=== PATIENT | female | born 1995 | race Caucasian/White ===

== ENCOUNTER 2017-08-10 13:30 | Emergency (ER) | payer OTHER ==
[~2017-08-10] VITALS: Ht 162.6 cm; Wt 57.1 kg
[2017-08-10 13:37] VITALS: TEMP 36.7; Ht 162.6 cm; Wt 57.1 kg
[2017-08-10] MEDS ORDERED: SODIUM CHLORIDE 0.9% 1000ML 1,000 ML IV STA (13:45)
[2017-08-10 14:20] LABS: BASO % 0.1 %; BASO ABS # 0.02 K/uL (0-0.2); COMPLETE YES; EOS % 0.3 %; HEMATOCRIT 42.1 % (37-47); IG% 0.3 %; LYMPH % 12.5 %; LYMPH ABS # 1.91 K/uL (1.2-3.4); MEAN CELL VOLUME 83.4 fL (80-100); MEAN CORPUSCULAR HEMOGLOBIN 28.9 pg (25-34); MEAN CORPUSCULAR HGB CONC 34.7 g/dl (32-36); MEAN PLATELET VOLUME 10.2 fL (7.4-10.4); NEUT % 82.8 %; PLATELET COUNT 352 K/uL (130-400); RED BLOOD COUNT 5.05 M/uL (4.2-5.4); WHITE BLOOD COUNT 15.24 K/uL (4.8-10.8)
[2017-08-10 14:33] LABS: BUN/CREATININE RATIO 10.9 (10-20); CALCIUM 9.8 mg/dl (8.5-10.1); CREATININE 0.81 mg/dl (0.60-1.20); POTASSIUM 3.6 mmol/L (3.5-5.1)
[2017-08-10 14:52] LABS: URINE APPEARANCE TURBID (CLEAR); URINE BILIRUBIN NEG (NEG); URINE COLOR YELLOW; URINE EPITHELIAL CELL AUTO 20-30 /lpf (0-5); URINE NITRITE NEG (NEG); URINE SPECIFIC GRAVITY 1.013 (1.000-1.030); UROBILINOGEN NEG (NEG); ZZUR CULT IF INDIC CLEAN CATCH YES
[2017-08-10 15:10] LABS: MANUAL MICROSCOPIC REQUIRED? NO; REVIEW REQ? YES
--- NOTE | 2017-08-10 15:53 | EMERGENCY ROOM VISIT NOTE ---
History First contact with patient: 13:40 Chief Complaint: URINARY SYMPTOMS Stated Complaint: SYMPT OF UTI, SHARP PAIN IN UPPER RIGHT SIDE Nursing Triage Summary: triage note; pt reports "i have had a uti for like a week and i have been treating it at home but today i woke up and have a sharp pain in my right lower back." History of Present Illness The patient is a 21 year old female who presents to the Emergency Room with complaints of urinary symptoms and right back pain. The patient states that she was recently on antibiotics for a sore throat. She states that the resolution of the antibiotics, she fell up some vaginal discharge and burning and use an [id number] treatment for a yeast infection. She states that her symptoms seemed to improve after a few days and she stopped using the medication. The patient states that she woke up this morning with dysuria and has also had some pain in the lower abdomen and right flank. She rates her overall discomfort a 6/10. She states that she currently has her menstrual period. She denies any fevers or nausea/vomiting. She has not taken any medication at home for her symptoms. She denies any chance of STDs. Review of Systems A complete 10 point review of systems was reviewed with the patient with pertinent positives and negatives as per history of present illness. All else were negative. Social History Smoking Status: Never Smoker Current/Historical Medications Scheduled Fluconazole (Diflucan), 150 MG PO DAILY Sulfa/Trimethoprim (Bactrim Ds 800MG/160MG), 1 TAB PO BID Physical Exam Vital Signs Date Time Temp Pulse Resp B/P (MAP) Pulse Ox O2 Delivery O2 Flow Rate FiO2 08/10/17 17:20 72 18 99/65 98 Room Air 08/10/17 16:40 69 18 103/58 97 Room Air 08/10/17 13:37 36.7 89 18 121/68 99 Room Air Physical Exam VITALS: Vitals are noted on the nurse's note and reviewed by myself. Vital signs stable. GENERAL: This is a 21-year-old female, in no acute distress, nondiaphoretic, well-developed well-nourished. HEART: Regular rate and rhythm without murmurs gallops or rubs. LUNGS: Clear to auscultation bilaterally without wheezes, rales or rhonchi. ABDOMEN: Positive bowel sounds x 4. Soft, mild tenderness to palpation over the suprapubic region. Mild right CVA tenderness. No guarding or rebound tenderness. PELVIC: External genitalia unremarkable. There is a small amount of blood within the vaginal vault. No cervicitis. No cervical motion or adnexal tenderness. NEURO: Patient was alert and oriented to person place and time. Medical Decision & Procedures ER Provider Diagnostic Interpretation: (RENAL)RETROPERITON COMP HISTORY: 21 years-old Female right flank pain, urinary sxs acute right-sided flank pain COMPARISON: None available TECHNIQUE: Multiple real-time sonographic images of the kidneys and urinary bladder were obtained assessing grayscale appearance and color flow. FINDINGS: The right kidney measures 9.7 x 4.1 x 4.5 cm and is unremarkable without renal calculi, hydronephrosis or focal mass lesions. Cortical medullary differentiation is preserved. The left kidney measures 10.2 x 4.7 x 4.1 cm and is unremarkable without hydronephrosis, renal calculi or focal mass lesions. Cortical medullary differentiation is preserved. Bilateral ureteral jets are documented. Mild urinary bladder wall thickening, 0.3 cm. IMPRESSION: 1. Normal sonographic appearance of the bilateral kidneys without renal calculi or hydronephrosis. 2. Mild urinary bladder wall thickening. Correlate with urinalysis to exclude cystitis. Laboratory Results 08/10/17 14:04 Red Blood Count 5.05, Mean Corpuscular Volume 83.4, Mean Corpuscular Hemoglobin 28.9, Mean Corpuscular Hemoglobin Concent 34.7, Mean Platelet Volume 10.2, Neutrophils (%) (Auto) 82.8, Lymphocytes (%) (Auto) 12.5, Monocytes (%) (Auto) 4.0, Eosinophils (%) (Auto) 0.3, Basophils (%) (Auto) 0.1, Neutrophils # (Auto) 12.62, Lymphocytes # (Auto) 1.91, Monocytes # (Auto) 0.61, Eosinophils # (Auto) 0.04, Basophils # (Auto) 0.02 08/10/17 14:04 Test 08/10/17 13:57 08/10/17 14:04 08/10/17 16:50 Urine Color YELLOW Urine Appearance TURBID (CLEAR) Urine pH 6.0 (4.5-7.5) Urine Specific [place] 1.013 (1.000-1.030) Urine Protein 2+ (NEG) Urine Glucose (UA) NEG (NEG) Urine Ketones NEG (NEG) Urine Occult Blood 2+ (NEG) Urine Nitrite NEG (NEG) Urine Bilirubin NEG (NEG) Urine Urobilinogen NEG (NEG) Urine Leukocyte Esterase LARGE (NEG) Urine WBC (Auto) >30 /hpf (0-5) Urine RBC (Auto) >30 /hpf (0-4) Urine Hyaline Casts (Auto) 1-5 /lpf (0-5) Urine Epithelial Cells (Auto) 20-30 /lpf (0-5) Urine Bacteria (Auto) 2+ (NEG) Urine Yeast (Auto) (NONE PRSENT) Urine Test NEG (NEG) White Blood Count 15.24 K/uL (4.8-10.8) Red Blood Count 5.05 M/uL (4.2-5.4) Hemoglobin 14.6 g/dL (12.0-16.0) Hematocrit 42.1 % (37-47) Mean Corpuscular Volume 83.4 fL (80-100) Mean Corpuscular Hemoglobin 28.9 pg (25-34) Mean Corpuscular Hemoglobin Concent 34.7 g/dl (32-36) Platelet Count 352 K/uL (130-400) Mean Platelet Volume 10.2 fL (7.4-10.4) Neutrophils (%) (Auto) 82.8 % Lymphocytes (%) (Auto) 12.5 % Monocytes (%) (Auto) 4.0 % Eosinophils (%) (Auto) 0.3 % Basophils (%) (Auto) 0.1 % Neutrophils # (Auto) 12.62 K/uL (1.4-6.5) Lymphocytes # (Auto) 1.91 K/uL (1.2-3.4) Monocytes # (Auto) 0.61 K/uL (0.11-0.59) Eosinophils # (Auto) 0.04 K/uL (0-0.5) Basophils # (Auto) 0.02 K/uL (0-0.2) RDW Standard Deviation 40.5 fL (36.4-46.3) RDW Coefficient of Variation 13.5 % (11.5-14.5) Immature Granulocyte % (Auto) 0.3 % Immature Granulocyte # (Auto) 0.04 K/uL (0.00-0.02) Anion Gap 5.0 mmol/L (3-11) Est Creatinine Clear Calc Drug Dose 96.5 ml/min Estimated GFR () 122.0 Estimated GFR (Non- 105.3 BUN/Creatinine Ratio 10.9 (10-20) Calcium Level 9.8 mg/dl (8.5-10.1) Date/Time Source Procedure Growth Status 08/10/17 16:50 Vaginal Swab Trichomonas Preparation - Final Complete Medications Administered Medications (Trade) Dose Ordered Sig/Eric Route Start Time Stop Time Status Last Admin Dose Admin Sodium Chloride 1,000 ml @ 999 mls/hr Q1H1M STAT IV 08/10/17 13:45 08/10/17 14:45 DC 08/10/17 13:45 999 MLS/HR Trimethoprim/ Sulfamethoxazole (Septra Ds 800/ 160MG Tab) 1 tab NOW ONCE PO 08/10/17 17:15 08/10/17 17:16 DC 08/10/17 17:21 1 TAB Fluconazole (Diflucan Tab) 150 mg NOW ONCE PO 08/10/17 17:15 08/10/17 17:16 DC 08/10/17 17:22 150 MG ED Course The patient was evaluated as above. Labs were drawn and IV access was obtained. Patient was medicated with 1 L normal saline solution. Renal ultrasound was performed and read by radiology as above. Patient was reevaluated and pelvic exam was performed at this time. Findings were discussed with the patient. She was given initial doses of Diflucan and Bactrim. Discharge instructions were reviewed with the patient. The patient verbalized understanding of my assessment and treatment plan and was discharged home in good condition. Medical Decision Differential diagnosis includes urinary tract infection, pyelonephritis, kidney stone, vaginal candidiasis, PID, STD, among others. The patient is a 21-year-old female who presents today complaining of urinary symptoms, right flank pain and vaginal discharge. Labs revealed leukocytosis of 15,000. Patient is afebrile. Labs were otherwise unremarkable. Urinalysis was suggestive of infection and also showed the presence of yeast. Urine was negative. Pelvic exam was performed and cultures were obtained and are pending. Patient will be treated on Bactrim for urinary tract infection and was given Diflucan for vaginal candidiasis. She was advised to follow-up with [facility] were DANCE DIRECTOR as needed. Based on the patient's presentation and work up, I feel the patient is stable for outpatient treatment. The patient was educated to return to the emergency department for any worsening of their current condition or new/concerning symptoms. She will follow up with her PCP. Medication Reconcilliation Current Medication List: was personally reviewed by me Blood Pressure Screening Patient's blood pressure: Normal blood pressure Impression Primary Impression: Urinary tract infection Departure Information Dispostion Home / Self-Care Condition GOOD Prescriptions Fluconazole (DIFLUCAN) 150 Mg Tab 150 MG PO DAILY for 1 Day, #1 TAB Prov: Yuko Martines PA-C 08/10/17 Sulfa/Trimethoprim (Bactrim Ds 800MG/160MG) Tab 1 TAB PO BID for 10 Days, #20 TAB Prov: Yuko Martines PA-C 08/10/17 Referrals No Doctor, Assigned (PCP) Patient Instructions My [facility] Additional Instructions You have been treated in the Emergency Department for a Urinary Tract Infection (UTI). You have been prescribed Bactrim to be taken twice daily for 10 days. This is an antibiotic. All antibiotics have the potential to cause diarrhea. Stop this medication and contact a medical provider if you were to develop any significant adverse side effects including: wheezing, shortness of breath, passing out, vomiting, or a diffuse rash. Always take antibiotics as directed and COMPLETE the ENTIRE course regardless of the improvement of your symptoms. Take the second Diflucan in 3-4 days if you have persistent symptoms of a yeast infection. Drink plenty of water and stay well hydrated. As with any trip to the Emergency Department, you should follow-up with your Primary Care Provider from today's visit. Return to the emergency department if your symptoms persist despite treatment plan outlined above or if the following symptoms occur: increased fevers, chills , low back pain, nausea/vomiting, or blood in your urine. Problem Qualifiers Primary Impression: Urinary tract infection Urinary tract infection type: acute cystitis Hematuria presence: with hematuria Qualified Codes: N30.01 - Acute cystitis with hematuria
--- NOTE | 2017-08-10 16:48 | DIAGNOSTIC IMAGING REPORT ---
(RENAL)RETROPERITON COMP HISTORY: 21 years-old Female right flank pain, urinary sxs acute right-sided flank pain COMPARISON: None available TECHNIQUE: Multiple real-time sonographic images of the kidneys and urinary bladder were obtained assessing grayscale appearance and color flow. FINDINGS: The right kidney measures 9.7 x 4.1 x 4.5 cm and is unremarkable without renal calculi, hydronephrosis or focal mass lesions. Cortical medullary differentiation is preserved. The left kidney measures 10.2 x 4.7 x 4.1 cm and is unremarkable without hydronephrosis, renal calculi or focal mass lesions. Cortical medullary differentiation is preserved. Bilateral ureteral jets are documented. Mild urinary bladder wall thickening, 0.3 cm. IMPRESSION: 1. Normal sonographic appearance of the bilateral kidneys without renal calculi or hydronephrosis. 2. Mild urinary bladder wall thickening. Correlate with urinalysis to exclude cystitis. The above report was generated using voice recognition software. It may contain grammatical, syntax or spelling errors. Electronically signed by: Linus Hughes M.D. 08/10/2017 4:46 PM Dictated Date/Time: 08/10/2017 4:44 PM
[2017-08-10] MEDS ORDERED: FLUC150T PO (17:12)
[2017-08-10] MEDS ORDERED: SULF800T23 PO (17:12)
[2017-08-10] MEDS ORDERED: FLUCONAZOLE 50 MG TAB PO ONE (17:15)
[2017-08-10] MEDS ORDERED: SULFAMETHOXAZOLE/TRIMETHOPRIM DS 800/160MG TAB PO ONE (17:15)
[2017-08-10 17:20] VITALS: BP 99/65; PULSE 72; O2SAT 98
--- NOTE | 2017-08-12 11:06 | Pharmacy Progress Note ---
ED Pharmacist Culture FollowUp Date of Service: Aug 12, 2017. Patient was sent home with a prescription for bactrim 1 tab BID, which should cover the E. Coli growing from the patient's urine culture.
[2017-08-13 23:47] LABS: CHLAMYDIA TRACH RNA*** NOT DETECTED (NOT DETECTED); GC (NEIS GONORRHOEAE)RNA** NOT DETECTED (NOT DETECTED)
== END 2017-08-10 17:26 | disposition home or self-care (01) ==
LOC: C.EDB 13:33 → C.EDC 17:26
DX: N30.01 Acute cystitis with hematuria (principal)

== ENCOUNTER 2017-11-27 18:28 | Emergency (ER) | payer OTHER ==
[~2017-11-27] VITALS: Ht 160 cm; Wt 60.2 kg
[2017-11-27 18:38] VITALS: BP 107/67; PULSE 88; TEMP 37.2; O2SAT 98; Ht 160 cm; Wt 60.2 kg
[2017-11-27] MEDS ORDERED: HYDROCORTISONE ACETATE 25 MG SUPP PR STA (19:23)
[2017-11-27] MEDS ORDERED: HYDROCORTISONE HC 2.5% CRM 30GM TUBE EXT STA (19:23)
[2017-11-27] MEDS ORDERED: LIDOCAINE/EPINEPHRINE 1% 20 ML VIAL INFIL STA (19:23)
[2017-11-27] MEDS ORDERED: DOCUSATE SODIUM 100 MG CAP PO STA (19:23)
[2017-11-27] MEDS ORDERED: SENNA 8.6 MG TAB PO STA (19:23)
--- NOTE | 2017-11-27 19:26 | EMERGENCY ROOM VISIT NOTE ---
History Report prepared by Meghan: Kym Mckeon Under the Supervision of: Dr. Mik Bazna M.D. First contact with patient: 19:15 Chief Complaint: RECTAL PAIN Stated Complaint: HEMMORHOID Nursing Triage Summary: see triage note History of Present Illness The patient is a 22 year old female who presents to the Emergency Room with complaints of worsening rectal pain secondary to a hemorrhoid that appeared one month ago. The patient states that she has a history of hemorrhoids. She notes she takes preparation H to relieve her discomfort. The patient did not want us to call her parents. Source of History: patient Onset: one month ago Quality: other (rectal pain) Timing: worsening Review of Systems See HPI for pertinent positives & negatives. A total of 10 systems reviewed and were otherwise negative. Family History Patient reports no known family medical history. Social History Smoking Status: Never Smoker Smokeless Tobacco Use: No Alcohol Use: occasionally Drug Use: none Marital Status: single Housing Status: lives with roommate Occupation Status: student Current/Historical Medications Scheduled Docusate Sodium (Colace), 1 CAP PO BID Sennosides (Senokot), 8.6 MG PO BID Allergies Coded Allergies: No Known Allergies (Unverified , 08/10/17) Physical Exam Vital Signs Date Time Temp Pulse Resp B/P (MAP) Pulse Ox O2 Delivery O2 Flow Rate FiO2 11/27/17 18:38 37.2 88 18 107/67 98 Room Air Physical Exam GENERAL: Patient is a healthy-appearing well-nourished female HEAD: Normocephalic atraumatic EYES: Ocular movements intact pupils equal and react to light OROPHARYNX mucous membranes are moist no exudates present no erythema or edema present NECK: Supple no nuchal rigidity CHEST: Good equal expansion LUNGS: Clear and equal to auscultation CARDIAC: Normal S1 and S2 ABDOMEN: Soft nontender no guarding BACK: No CVA tenderness EXTREMITIES: No pain upon palpation normal muscle strength in all groups no clubbing cyanosis or edema RECTUM: Quarter sized hemorrhoid, no evidence of abscess. NEURO: Patient is following commands and answering questions appropriately. Alert and oriented x3 Cranial Nerves 2-12 grossly intact Medical Decision & Procedures Medications Administered Medications (Trade) Dose Ordered Sig/Eric Route Start Time Stop Time Status Last Admin Dose Admin Hydrocortisone Acetate (Anusol Hc Supp) 25 mg NOW STAT NV 11/27/17 19:23 11/27/17 19:25 DC 11/27/17 19:47 25 MG Hydrocortisone (Proctozone Hc 2.5% Crm) 1 appln NOW STAT EXT 11/27/17 19:23 11/27/17 19:25 DC 11/27/17 19:46 1 APPLN Docusate Sodium (coLACE CAP) 100 mg NOW STAT PO 11/27/17 19:23 11/27/17 19:25 DC 11/27/17 19:47 100 MG Senna (Senokot Tab) 8.6 mg NOW STAT PO 11/27/17 19:23 11/27/17 19:25 DC 11/27/17 19:47 8.6 MG Procedure Hemorrhoid procedure Indication: Hemorrhoid Location: Rectum Verbal consent was obtained after the risks and benefits were explained, including but not limited to bleeding, scarring, infection, pain, and bone/joint /nerve damage. At this time, the risks of the procedure are less than the risks of NOT performing the procedure. A time out was taken and the correct patient and site identified. The skin was prepped with betadine and a sterile field set. The wound was anesthetized with 4 ml of 1% lidocaine with epinephrine. The abscess cavity was entered with a number 11 blade and blood clot material expressed. The wound was explored for foreign bodies and none found. Debridement was not performed. Packing placed and a sterile dressing applied. Detailed wound care instructions and signs and symptoms of worsening infection reviewed with the patient. No complications and the patient tolerated the procedure well. ED Course 1916: Past medical records reviewed. The patient was evaluated in room A4. A complete history and physical examination was performed with female nurse present. 1922: Ordered Hydrocortisone Acetate 25mg NV, Hydrocortisone 1 appln EXT, Lidocaine/epinephrine 20ml INFIL, Docusate Sodium 100mg PO, and Senna 8.6mg Po. 1950: Hemorrhoid procedure was performed, with female nurse present. 2009: Upon reexamination the patient is feeling significantly better. I discussed results and treatment plan with the patient. She verbalizes agreement and understanding. The patient is ready for discharge. Medical Decision Differential diagnosis includes: hemorrhoids. This is a 22-year-old female who presents emergency department complaining of hemorrhoid. I gave the patient several options and what to do and offered to call this patient's parents however she refused. The patient was given Anusol suppository here in emergency department and under nursing supervision the hemorrhoid was excised as above. I recommended continuation of Anusol in the follow-up with gastroenterology. In the meanwhile the patient was placed on stool softeners. Patient was in agreement with the treatment plan. Medication Reconcilliation Current Medication List: was personally reviewed by me Blood Pressure Screening Patient's blood pressure: Normal blood pressure Impression Primary Impression: Hemorrhoid Scribe Attestation The scribe's documentation has been prepared under my direction and personally reviewed by me in its entirety. I confirm that the note above accurately reflects all work, treatment, procedures, and medical decision making performed by me. Departure Information Dispostion Home / Self-Care Prescriptions Sennosides (SENOKOT) 8.6 Mg Tab 8.6 MG PO BID for 30 Days, #60 TAB Prov: Mik Bazan MD 11/27/17 Docusate Sodium (COLACE) 100 Mg Cap 1 CAP PO BID for 15 Days, #30 CAP Prov: Mik Bazan MD 11/27/17 Referrals No Doctor, Assigned (PCP) Forms HOME CARE DOCUMENTATION FORM, IMPORTANT VISIT INFORMATION, WORK / SCHOOL INSTRUCTIONS Patient Instructions My [facility] Additional Instructions Apply anusol twice a day after BM Need follow up with gastroenterology Take 1000 mg tylenol every 6 hours You have been examined and treated today on an emergency basis only. This is not a substitute for, or an effort to provide, complete comprehensive medical care. It is impossible to recognize and treat all injuries or illnesses in a single emergency department visit. It is therefore important that you follow up closely with [facility]. Call as soon as possible for an appointment. Thank you for your time and consideration. I look forward to speaking with you again soon. Please don't hesitate to call us if you have any questions. Problem Qualifiers Primary Impression: Hemorrhoid Hemorrhoid type: unspecified Qualified Codes: K64.9 - Unspecified hemorrhoids
[2017-11-27] MEDS ORDERED: SENN1TAB77 PO (20:12)
[2017-11-27] MEDS ORDERED: DOCU-94 PO (20:12)
== END 2017-11-27 20:52 | disposition home or self-care (01) ==
LOC: C.EDB 18:29 → C.EDA 20:52
DX: K64.5 Perianal venous thrombosis (principal)